=== PATIENT | male | born 1975 | race Two or more races ===

== ENCOUNTER 2020-12-03 17:51 | Emergency (ER) | payer BC, OTHER ==
[~2020-12-03] VITALS: Ht 182.9 cm; Wt 95.3 kg
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
[2020-12-03] MEDS ORDERED: IBUP-1955 PO (18:24)
[2020-12-03 19:01] VITALS: BP 103/66
--- NOTE | 2020-12-03 19:01 | NUR ---
Patient discharged to home in stable condition. Written and verbal after care instructions given. Patient verbalizes understanding of instruction.
== END 2020-12-03 19:02 | disposition home or self-care (01) ==
LOC: ER 17:51
DX: S62.327A Displaced fracture of shaft of fifth metacarpal bone, left hand, initial encounter for closed fracture (principal); F17.200 Nicotine dependence, unspecified, uncomplicated; Y04.0XXA Assault by unarmed brawl or fight, initial encounter; Y93.01 Activity, walking, marching and hiking; Y92.89 Other specified places as the place of occurrence of the external cause; Y99.8 Other external cause status
CPT/HCPCS: 73130-TC

== ENCOUNTER 2022-12-02 00:10 | Emergency (ER) | payer BC ==
[~2022-12-02] VITALS: Ht 182.9 cm; Wt 96.2 kg
[~2022-12-02 00:10] MED LIST: IBUP-1955 PO
[2022-12-02 00:45] VITALS: BP 135/70
--- NOTE | 2022-12-02 00:45 | NUR ---
BIBSELF C/O RASH LUIS MANUEL ARM, LUIS MANUEL FOOT PAIN. PATIENT IS AMBULATORY, AWAKE, ABLE TO MAKE NEEDS KNOWN. PLACED COMFORTABLY IN BED.
--- NOTE | 2022-12-02 00:51 | NUR ---
SEEN BY DR JARQUIN AT BEDSIDE
[2022-12-02] MEDS ORDERED: PRED50TA PO (00:56)
[2022-12-02] MEDS ORDERED: FAMOTIDINE (20 MG) 20 MG TABLET ONE (00:58)
[2022-12-02] MEDS ORDERED: predniSONE 20 MG TABLET ONE (00:58)
[2022-12-02] MEDS ORDERED: diphenhydrAMINE HCL 25 MG CAPSULE ONE (00:58)
[2022-12-02] MEDS ORDERED: DIPHENHYDRAMINE HCL 12.5 MG/5 ML UDC PO ONE (01:00)
[2022-12-02] MEDS ORDERED: predniSONE 50 MG TABLET PO ONE (01:00)
[2022-12-02] MEDS ORDERED: FAMOTIDINE (20 MG) 20 MG TABLET PO ONE (01:00)
--- NOTE | 2022-12-02 01:03 | NUR ---
Patient discharged to home in stable condition. RX Written and verbal after care instructions given. Patient verbalizes understanding of instruction.
== END 2022-12-02 01:03 | disposition home or self-care (01) ==
LOC: ER 00:12
DX: R21 Rash and other nonspecific skin eruption (principal); F17.200 Nicotine dependence, unspecified, uncomplicated; Z79.899 Other long term (current) drug therapy
CPT/HCPCS: 99284; Q0163 ×2; J7512